=== PATIENT | male | born 1995 | race Caucasian/White ===

== ENCOUNTER 2024-02-06 20:03 | Emergency (ER) | payer OTHER ==
--- NOTE | 2024-02-06 20:33 | ER ---
Nurse's Notes 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 vc1 Coronavirus screen: Client denies travel out of the [place] in the last 14 days. At this time, the client does not indicate any symptoms associated with coronavirus-19. Ebola Screen: Patient negative for fever greater than or equal to 101.5 degrees Fahrenheit, and additional compatible Ebola Virus Disease symptoms Patient denies exposure to infectious person. Patient denies travel to an Ebola-affected area in the 21 days before illness onset. No symptoms or risks identified at this time. Initial Sepsis Screen: Does the patient meet any 2 criteria? No. Patient's initial sepsis screen is negative. Does the patient have a suspected source of infection? No. Patient's initial sepsis screen is negative. Risk Assessment: Do you want to hurt yourself or someone else? Patient reports no desire to harm self or others. Onset of symptoms was February 06, 2024. 20:20 Method Of Arrival: Ambulatory 1 20:20 Acuity: SEBASTIAN 4 vc1 Triage Assessment: 20:23 Bite description: animal information: vaccination(s) is unknown. 1 20:23 Bite description: bite sustained to left wrist by a dog, animal information: vc1 Appearance: appeared well, is from animal, vaccination(s) is current, was sustained 1-2 hours ago. Animal status: Police K9, Animal control has Police K9. General: Appears in no apparent distress. comfortable, Behavior is calm, cooperative, appropriate for age. Pain: Complains of pain in left wrist Pain does not radiate. EENT: No deficits noted. No signs and/or symptoms were reported regarding the EENT system. Neuro: Level of Consciousness is awake, alert, obeys commands, Oriented to person, place, time, situation, Appropriate for age. Cardiovascular: Capillary refill < 3 seconds Patient's skin is warm and dry. Respiratory: Airway is patent Respiratory effort is even, unlabored, Respiratory pattern is regular, symmetrical. GI: No deficits noted. No signs and/or symptoms were reported involving the gastrointestinal system. : No deficits noted. No signs and/or symptoms were reported regarding the genitourinary system. Derm: Skin is healthy with good turgor, Skin is dry, Skin is normal, Wound noted left wrist. Musculoskeletal: No deficits noted. No signs and/or symptoms reported regarding the musculoskeletal system. Injury Description: Bite sustained to left wrist caused by a dog, is from animal, was sustained 1-2 hours ago. Historical: - Allergies: 20:22 No Known Allergies; vc1 - Home Meds: 20:22 Omeprazole Oral [Active]; vc1 - PMHx: 20:22 acid reflux; vc1 - PSHx: 20:22 None; vc1 - Immunization history:: Client reports having NOT received the Covid vaccine. - Infectious Disease History:: Denies. - Social history:: Smoking status: Patient reports the use of cigarette tobacco products, denies chronic smoking, but will smoke occasionally. - Family history:: not pertinent. Screenin:23 [facility] ED Fall Risk Assessment (Adult) History of falling in the last 3 months, vc1 including since admission No falls in past 3 months (0 pts) Confusion or Disorientation No (0 pts) Intoxicated or Sedated No (0 pts) Impaired Gait No (0 pts) Mobility Assist Device Used No (0 pt) Altered Elimination No (0 pt) Score/Fall Risk Level 0 - 2 = Low Risk Oriented to surroundings, Maintained a safe environment, Educated pt \T\ family on fall prevention, incl call for assistance when getting out of bed. Abuse screen: Denies threats or abuse. Nutritional screening: No deficits noted. Tuberculosis screening: No symptoms or risk factors identified. 20:28 Exposure risk/Travel Screening: None identified. mt4 Assessment: 20:26 General: Appears in no apparent distress. comfortable, Behavior is calm, cooperative, mt4 Denies fever, chills. Pain: Complains of pain in left hand Pain currently is 1 out of 10 on a pain scale. Quality of pain is described as aching, Pain began 30 min ago. Neuro: Oriented to person, place, time, situation, Moves all extremities. Gait is steady, Speech is normal, Facial symmetry appears normal. Cardiovascular: No deficits noted. Respiratory: No deficits noted. GI: No deficits noted. : No deficits noted. Derm: Skin Dog bite to left wrist, small Skin is pink, warm \T\ dry. normal, Skin temperature is warm Wound noted left hand. Musculoskeletal: No deficits noted. Capillary refill < 3 seconds, Range of motion: intact in all extremities. Injury Description: Bite sustained to left hand caused by a dog, is full thickness. 21:26 General: Appears in no apparent distress. distressed, comfortable, Behavior is calm, mt4 cooperative. Pain: Complains of pain in right arm Pain currently is 1 out of 10 on a pain scale. Pain began s/p shot to right arm, complains of mild sorness. 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 Gait is steady, Speech is normal, Facial symmetry appears normal. Cardiovascular: Capillary refill < 3 seconds Patient's skin is warm and dry. Respiratory: Airway is patent. Injury Description: Bite Puncture sustained to left hand. Vital Signs: 20:20 BP 120 / 73; Pulse 100; Resp 18; Temp 98.9; Pulse Ox 97% ; Weight 120.2 kg; Height 6 vc1 ft. 3 in. ; 20:24 BP 108 / 76; Pulse 97; Resp 16; Temp 98.5(O); Pulse Ox 97% on R/A; Pain 1/10; mt4 21:24 BP 126 / 85; Pulse 93 LA; Resp 16; Temp 98.6; Pulse Ox 99% on R/A; Pain 1/10; mt4 20:20 Body Mass Index 33.12 (120.20 kg, 190.5 cm) vc1 20:24 Pain Scale: Adult mt4 21:24 Pain Scale: Adult mt4 Darek Coma Score: 20:28 Eye Response: spontaneous(4). Motor Response: obeys commands(6). Verbal Response: mt4 oriented(5). Total: 15. 21:26 Eye Response: spontaneous(4). Motor Response: obeys commands(6). Verbal Response: mt4 oriented(5). Total: 15. Trauma Score (Adult): 20:28 Eye Response: spontaneous(1); Verbal Response: oriented(1); Motor Response: obeys mt4 commands(2); Systolic BP: > 89 mm Hg(4); Respiratory Rate: 10 to 29 per min(4); Washington Score: 15; Trauma Score: 12 ED Course: 20:06 Patient arrived in ED. ra3 20:09 Jaime Caruso MD is Attending Physician. [facility] 20:22 Triage completed. vc1 20:22 Arm band placed on right wrist. vc1 20:23 Patient has correct armband on for positive identification. Bed in low position. Call vc1 light in reach. Pulse ox on. NIBP on. 20:24 Oskar Singh, RN is Primary Nurse. mt4 20:28 No apparent distress. Resting quietly. mt4 20:28 Fall risk band placed. Bed in low position. Side rails up X 1. Adult w/ patient. Client mt4 placed on continuous cardiac and pulse oximetry monitoring. NIBP monitoring applied. skimmer reverberatory on. Pulse ox on. Door closed. Lights dimmed. Warm blanket given. Pillow given. Verbal reassurance given. Assisted to bathroom. 20:28 Patient maintains SpO2 saturation greater than 95% on room air. mt4 21:26 Provided Education on: wound care edu. Client placed on continuous cardiac and pulse mt4 oximetry monitoring. NIBP monitoring applied. Pulse ox on. Lights dimmed. Warm blanket given. Pillow given. 21:26 No provider procedures requiring assistance completed. Patient did not have IV access mt4 during this emergency room visit. no IV was inserted. Patient maintains SpO2 saturation greater than 95% on room air. Administered Medications: 20:30 Drug: Mupirocin Topical Ointment 2 % 1 application Topical once {Note: administered by mt4 provider after laceration repair as MD stated .} Route: Topical; Site: left hand; 21:34 Follow up: Response: No adverse reaction mt4 20:45 Drug: Boostrix Tdap IM 0.5 ml IM once; as a single dose Route: IM; Site: right deltoid; mt4 21:32 Follow up: Response: No adverse reaction mt4 20:45 Drug: Amoxicillin-Clavulanate PO 875 mg PO once Route: PO; mt4 21:32 Follow up: Response: No adverse reaction mt4 20:56 Drug: Lidocaine-Epinephrine Infiltration -1%: (1:100,000) 5 ml 20 ml Infiltration once; mt4 to bedside {Note: administered by provider .} Volume: 20 ml; Route: Infiltration; Site: affected area; 21:31 Follow up: Response: No adverse reaction mt4 21:33 Follow up: Response: No adverse reaction mt4 Medication: 21:26 VIS not applicable for this client. mt4 Outcome: :33 Discharge ordered by MD. mazariegos : Admitted to mt4 21: Discharged to home ambulatory, : Condition: good : Condition: stable 21: Discharge instructions given to patient, significant other, Instructed on discharge instructions, follow up and referral plans. medication usage, wound care, Demonstrated understanding of instructions, follow-up care, medications, wound care, Prescriptions given X 2, 21:34 Patient left the ED. mt4 Signatures: Jaime Caruso MD MD cha Calcote, Vanessa, RN RN 1 Ingrid Welch 3 Oskar Singh, RN RN mt4
--- NOTE | 2024-02-06 20:33 | EDPHYS ---
Physician Documentation [facility] Name: Niko Ray Age: 28 yrs Sex: Male : 1995 Arrival Date: 02/06/2024 Time: 20:03 Bed 17 Private MD: ED Physician Jaime Caruso HPI: 02/05 20:27 This 28 yrs old Male presents to ER via Ambulatory with complaints of Dog yair Bite - work related. 20:27 The patient was bitten on the medial aspect of left wrist, by a dog, training. Onset: yair The symptoms/episode began/occurred just prior to arrival. Animal information: The animal was reported to appear healthy. Animal's vaccinations are up to date. Secondary to the bite the patient reports a laceration, that is deep. Associated signs and symptoms: The patient has no apparent associated signs or symptoms. Severity of symptoms: At their worst the symptoms were mild, in the emergency department the symptoms are unchanged. The patient has not experienced similar symptoms in the past. Historical: - Allergies: 20:22 No Known Allergies; vc1 - Home Meds: 20:22 Omeprazole Oral [Active]; vc1 - PMHx: 20:22 acid reflux; vc1 - PSHx: 20:22 None; vc1 - Immunization history:: Client reports having NOT received the Covid vaccine. - Infectious Disease History:: Denies. - Social history:: Smoking status: Patient reports the use of cigarette tobacco products, denies chronic smoking, but will smoke occasionally. - Family history:: not pertinent. ROS: 20:27 Constitutional: Negative for fever, chills, and weight loss, Eyes: Negative for injury, yair pain, redness, and discharge, ENT: Negative for injury, pain, and discharge, Neck: Negative for injury, pain, and swelling, Cardiovascular: Negative for chest pain, palpitations, and edema, Respiratory: Negative for shortness of breath, cough, wheezing, and pleuritic chest pain, Abdomen/GI: Negative for abdominal pain, nausea, vomiting, diarrhea, and constipation, Back: Negative for injury and pain, : Negative for injury, bleeding, discharge, and swelling, Skin: Negative for injury, rash, and discoloration, Neuro: Negative for headache, weakness, numbness, tingling, and seizure, Psych: Negative for depression, anxiety, suicide ideation, homicidal ideation, and hallucinations, Allergy/Immunology: Negative for hives, rash, and allergies, Endocrine: Negative for neck swelling, polydipsia, polyuria, polyphagia, and marked weight changes, Hematologic/Lymphatic: Negative for swollen nodes, abnormal bleeding, and unusual bruising, 20:27 MS/extremity: Positive for laceration, tenderness, of the medial aspect of left wrist, Exam: 20:27 Constitutional: This is a well developed, well nourished patient who is awake, alert, yair and in no acute distress. Head/Face: Normocephalic, atraumatic. Eyes: Pupils equal round and reactive to light, extra-ocular motions intact. Lids and lashes normal. Conjunctiva and sclera are non-icteric and not injected. Cornea within normal limits. Periorbital areas with no swelling, redness, or edema. ENT: Nares patent. No nasal discharge, no septal abnormalities noted. Tympanic membranes are normal and external auditory canals are clear. Oropharynx with no redness, swelling, or masses, exudates, or evidence of obstruction, uvula midline. Mucous membranes moist. Neck: Trachea midline, no thyromegaly or masses palpated, and no cervical lymphadenopathy. Supple, full range of motion without nuchal rigidity, or vertebral point tenderness. No Meningismus. Chest/axilla: Normal chest wall appearance and motion. Nontender with no deformity. No lesions are appreciated. Cardiovascular: Regular rate and rhythm with a normal S1 and S2. No gallops, murmurs, or rubs. Normal PMI, no JVD. No pulse deficits. Respiratory: Lungs have equal breath sounds bilaterally, clear to auscultation and percussion. No rales, rhonchi or wheezes noted. No increased work of breathing, no retractions or nasal flaring. Abdomen/GI: Soft, non-tender, with normal bowel sounds. No distension or tympany. No guarding or rebound. No evidence of tenderness throughout. Back: No spinal tenderness. No costovertebral tenderness. Full range of motion. Male : Normal genitalia with no discharge or lesions. Neuro: Awake and alert, GCS 15, oriented to person, place, time, and situation. Cranial nerves II-XII grossly intact. Motor strength 5/5 in all extremities. Sensory grossly intact. Cerebellar exam normal. Normal gait. Psych: Awake, alert, with orientation to person, place and time. Behavior, mood, and affect are within normal limits. 20:27 Skin: injury, laceration(s), the wound is approximately 1 cm(s), with a depth of .5 cm(s), of the medial aspect of left wrist, Vital Signs: 20:20 BP 120 / 73; Pulse 100; Resp 18; Temp 98.9; Pulse Ox 97% ; Weight 120.2 kg; Height 6 vc1 ft. 3 in. ; 20:24 BP 108 / 76; Pulse 97; Resp 16; Temp 98.5(O); Pulse Ox 97% on R/A; Pain 1/10; mt4 21:24 BP 126 / 85; Pulse 93 LA; Resp 16; Temp 98.6; Pulse Ox 99% on R/A; Pain 1/10; mt4 20:20 Body Mass Index 33.12 (120.20 kg, 190.5 cm) vc1 20:24 Pain Scale: Adult mt4 21:24 Pain Scale: Adult mt4 Isabella Coma Score: 20:28 Eye Response: spontaneous(4). Motor Response: obeys commands(6). Verbal Response: mt4 oriented(5). Total: 15. 21:26 Eye Response: spontaneous(4). Motor Response: obeys commands(6). Verbal Response: mt4 oriented(5). Total: 15. Trauma Score (Adult): 20:28 Eye Response: spontaneous(1); Verbal Response: oriented(1); Motor Response: obeys mt4 commands(2); Systolic BP: > 89 mm Hg(4); Respiratory Rate: 10 to 29 per min(4); Isabella Score: 15; Trauma Score: 12 Laceration: 20:27 Wound Repair of .5cm ( 0.2in ) subcutaneous laceration to medial aspect of left wrist. yair Linear shaped.. Distal neuro/vascular/tendon intact. Anesthesia: Local anesthetic administered with 5 mls of 1% lidocaine w/ Epi. Wound prep: Moderate cleansing with betadine by wv. Skin closed with 1 5-0 Prolene using interrupted sutures and sterile technique. Dressed with Neosporin. Patient tolerated well. MDM: 20:09 Patient medically screened. [facility] 02/06 01:45 Differential diagnosis: superficial laceration, tendon injury, vascular injury, yair cellulitis. Data reviewed: vital signs, nurses notes. I considered the following discharge prescriptions or medication management in the emergency department Medications were administered in the Emergency Department. See MAR. Test considered but Not performed: Labs: NO LABS. 02/05 20:27 Order name: Dressing - Wound; Complete Time: 20:57 yair 02/05 20:27 Order name: Gloves, Sterile; Complete Time: 20:57 yair 02/05 20:27 Order name: Prolene, Sutures; Complete Time: 20:57 yair 02/05 20:27 Order name: Setup Suture Tray; Complete Time: 20:57 yair Administered Medications: 02/05 20:30 Drug: Mupirocin Topical Ointment 2 % 1 application Topical once {Note: administered by mt4 provider after laceration repair as MD stated .} Route: Topical; Site: left hand; 21:34 Follow up: Response: No adverse reaction mt4 20:45 Drug: Boostrix Tdap IM 0.5 ml IM once; as a single dose Route: IM; Site: right deltoid; mt4 21:32 Follow up: Response: No adverse reaction mt4 20:45 Drug: Amoxicillin-Clavulanate PO 875 mg PO once Route: PO; mt4 21:32 Follow up: Response: No adverse reaction mo4 20:56 Drug: Lidocaine-Epinephrine Infiltration -1%: (1:100,000) 5 ml 20 ml Infiltration once; mt4 to bedside {Note: administered by provider .} Volume: 20 ml; Route: Infiltration; Site: affected area; 21:31 Follow up: Response: No adverse reaction mt4 21:33 Follow up: Response: No adverse reaction mt4 Disposition Summary: 02/06/24 20:33 Discharge Ordered Notes: Location: Home yair Problem: new yair Symptoms: have improved yair Condition: Stable yair Diagnosis - Bitten by dog yair - Laceration without foreign body of left wrist yair Followup: yair - With: Private Physician - When: 2 - 3 days - Reason: Recheck today's complaints, Continuance of care, Re-evaluation by your physician Discharge Instructions: - Discharge Summary Sheet yair - Animal Bite, Adult, [id number] yair - Laceration Care, Adult yair - Laceration Care, Adult, [id number] yair - Animal Bite, Adult yair Forms: - Medication Reconciliation Form yair - Antibiotic Education yair - Prescription Opioid Use yair - Patient Portal Instructions yair - Leadership Thank You Letter yair - Work release form rv1 Prescriptions: - Centany 2 % Topical ointment - apply 1 application TOPICAL route 3 times per day; 15 gram tube; Refills: 0, yair Product Selection Permitted - Augmentin 875-125 mg Oral tablet - take 1 tablet ORAL route every 12 hours for 7 days; 14 tablet; Refills: 0, yair Product Selection Permitted Signatures: Jaime Caruso MD MD cha Calcote, Vanessa RN RN vc1 Oskar Singh RN RN mt4
[2024-02-06] MEDS ORDERED: LIDOCAINE 2% W/EPI 1:200,000 MPF 20 ML VIAL IM ONE (20:36)
[2024-02-06] MEDS ORDERED: MUPIROCIN 2% OINT 22GM TUBE TOP ONE (20:36)
[2024-02-06] MEDS ORDERED: AMOX/K CLAV 875 MG TAB ONE (20:36)
[2024-02-06] MEDS ORDERED: TDAP (DIPHTH,PERTUSS(ACELL),TET VAC) 0.5 ML VIAL IMVAC ONE (20:55)
[2024-02-06 22:08] VITALS: BP 126/85; TEMP 98.6; O2SAT 99
== END 2024-02-06 21:34 | disposition home or self-care (01) ==
LOC: ER 20:03
PROC: 0HQEXZZ Repair Left Lower Arm Skin, External Approach (ICD-10-PCS; principal; 2024-02-06)
DX: S61.512A Laceration without foreign body of left wrist, initial encounter (principal); W54.0XXA Bitten by dog, initial encounter; F17.210 Nicotine dependence, cigarettes, uncomplicated

== ENCOUNTER 2024-02-17 16:16 | Emergency (ER) | payer OTHER, SELFPAY ==
[2024-02-17 18:13] LABS: Absolute Basophils 0.1 K/uL (0-0.5); Absolute Eosinophils 0.1 K/uL (0-0.5); Absolute Lymphocytes (CBC) 2.7 K/uL (0.7-4.9); Absolute Monocytes 1.2 K/uL (0.1-1.3); Absolute Neutrophil 9.9 K/uL (1.8-8.0); Basophils % 0.7 % (0-1.3); Eosinophils % 0.9 % (0-4.4); Hematocrit 43.6 % (39.6-49.0); Hemoglobin 14.9 g/dL (13.6-17.9); Lymphocytes % 19.1 % (15.3-44.8); MCH 30.1 pg (27.0-35.0); MCHC 34.2 g/dL (32.0-36.0); MCV 88.2 fL (80-100); MPV 6.5 fL (7.6-11.3); Monocytes % 8.9 % (3.3-12.3); Neutrophils % 70.4 % (41.7-73.7); Platelets 244 thou/uL (152-406); RBC Red Blood Cell Count 4.94 M/uL (4.33-5.43); Red Cell Distribution Width 13.1 % (12.1-15.2)
[2024-02-17 18:32] LABS: Specific Gravity 1.027 (1.005-1.030); Sqamous Epithelial None Seen /HPF (None Seen); Urine Bacteria None Seen /HPF (<20); Urine Bilirubin NEGATIVE (Negative); Urine Blood 1+ (Negative); Urine Clarity Clear (Clear); Urine Color Yellow (Yellow); Urine Culture Reflex Order NOT NEEDED; Urine Glucose NEGATIVE (Negative); Urine Ketones NEGATIVE (Negative); Urine Microscopic Reflex YN ORDER UMIC; Urine Mucus Slight /HPF (None Seen); Urine Nitrite NEGATIVE (Negative); Urine Protein TRACE (Negative); Urine Urobilinogen 1+ (Normal); Urine WBC <5 /HPF (<5); Urine pH 6.5 (5.0-7.0)
[2024-02-17 18:33] LABS: Albumin 3.6 g/dL (3.4-5.0); Anion Gap 6.7 mEq/L (5.0-15.0); Bilirubin Total 1.1 mg/dL (0.2-1.0); Globulin 3.7 g/dL (2.3-3.5); Potassium 3.7 mEq/L (3.5-5.1); Protein, Total 7.3 g/dL (6.4-8.2)
--- NOTE | 2024-02-17 19:11 | RAD REPORT ---
EXAM DESCRIPTION: CTAbdomen Pelvis W Contrast - 02/17/2024 7:03 pm CLINICAL HISTORY: Abdominal pain. ABD PAIN COMPARISON: <Comparisons> TECHNIQUE: Biphasic CT imaging of the abdomen and pelvis was performed with 100 ml non-ionic IV cont rast. All CT scans are performed using dose optimization technique as appropriate and may include automated exposure control or mA/KV adjustment according to patient size. FINDINGS: The lung bases are clear. The liver, spleen, pancreas, adrenal glands and kidneys are within normal limits. No bowel obstruction, free air, free fluid or abscess. There is a 5 cm area of sigmoid colon in the l ower quadrant which is moderately inflamed. The appendix is normal. No evidence of significant lymph adenopathy. No suspicious bony findings. IMPRESSION: Inflamed sigmoid colon in the left lower quadrant 5 cm likely acute diverticulitis after appropriate therapy, recommend colonoscopy for direct visualization of this region.
--- NOTE | 2024-02-17 19:32 | RAD REPORT ---
EXAM DESCRIPTION: US - Scrotum Testicles - 02/17/2024 7:14 pm CLINICAL HISTORY: PAIN COMPARISON: <Comparisons> FINDINGS: The right testicle 5.4 x 3.7 x 2.6 cm. No intratesticular masses or evidence of testicular torsion. The left testicle 5.0 x 3.5 x 2.6 cm. No intratesticular masses or evidence of testicular torsion. Both epididymides are normal in size and appearance. No pathologic fluid collections. IMPRESSION: Unremarkable study.
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
--- NOTE | 2024-02-17 19:54 | ER ---
Nurse's Notes [facility] Name: Niko Ray Age: 28 yrs Sex: Male : 1995 Arrival Date: 02/17/2024 Time: 16:16 Bed 6 Private MD: Diagnosis: Diverticulitis of large intestine without perforation or abscess without bleeding Presentation: 02/16 16:48 Chief complaint: Patient states: he has been having lower abdominal cramping that is ap3 intermittent since yesterday afternoon. patient reports his last bowel movement to be yesterday morning. patient reports his pain to be a 7/10 on the pain scale. patient denies any nausea or vomiting. Coronavirus screen: At this time, the client does not indicate any symptoms associated with coronavirus-19. Ebola Screen: No symptoms or risks identified at this time. Initial Sepsis Screen: Does the patient meet any 2 criteria? No. Patient's initial sepsis screen is negative. Does the patient have a suspected source of infection? No. Patient's initial sepsis screen is negative. Risk Assessment: Do you want to hurt yourself or someone else? Patient reports no desire to harm self or others. Onset of symptoms was February 16, 2024. 16:48 Method Of Arrival: Ambulatory ap3 16:48 Acuity: SEBASTIAN 3 ap3 Triage Assessment: 16:51 General: Appears in no apparent distress. Behavior is calm, cooperative, appropriate ap3 for age. Pain: Complains of pain in suprapubic area, right lower quadrant and left lower quadrant Pain currently is 7 out of 10 on a pain scale. Pain began 1 day ago. Is intermittent. Neuro: Level of Consciousness is awake, alert, obeys commands, Oriented to person, place, time, situation, Appropriate for age. Cardiovascular: Patient's skin is warm and dry. Respiratory: Airway is patent Respiratory effort is even, unlabored, Respiratory pattern is regular, symmetrical. GI: Reports lower abdominal pain, constipation, cramping. Historical: - Allergies: 16:50 No Known Allergies; ap3 - PMHx: 16:50 acid reflux; ap3 - Immunization history:: Client reports having NOT received the Covid vaccine. Last tetanus immunization: up to date Flu vaccine is not up to date. - Infectious Disease History:: Denies. - Social history:: Smoking status: Patient reports the use of cigarette tobacco products, smokes one pack cigarettes per day. Patient uses alcohol, occasionally. Screenin:[facility] ED Fall Risk Assessment (Adult) History of falling in the last 3 months, ap3 including since admission No falls in past 3 months (0 pts) Confusion or Disorientation No (0 pts) Intoxicated or Sedated No (0 pts) Impaired Gait No (0 pts) Mobility Assist Device Used No (0 pt) Altered Elimination No (0 pt) Score/Fall Risk Level 0 - 2 = Low Risk Oriented to surroundings, Maintained a safe environment, Educated pt \T\ family on fall prevention, incl call for assistance when getting out of bed, Assessed \T\ reinforced patient's understanding of fall precautions, Hourly rounding (assess needs \T\ fall precautionary measures) done, Used ambulatory aids as needed (educated on \T\ assisted with), Used gait belt as appropriate. Abuse screen: Denies threats or abuse. Nutritional screening: No deficits noted. Tuberculosis screening: No symptoms or risk factors identified. Assessment: 18:08 General: Appears in no apparent distress. Behavior is calm, cooperative. Pain: mb9 Complains of pain in abdomen Pain radiates to pelvis Pain currently is 7 out of 10 on a pain scale. Pain began suddenly, Is intermittent. Neuro: [place] Agitation-Sedation Scale (RASS): 0 - Alert and Calm Level of Consciousness is awake, alert, obeys commands, Oriented to person, place, time, situation, Appropriate for age. Cardiovascular: Patient's skin is warm and dry. Respiratory: Airway is patent Respiratory effort is even, unlabored, Respiratory pattern is regular, symmetrical. GI: Abdomen is round non-distended, Bowel sounds present X 4 quads. Abd is soft Abdomen is tender to palpation in suprapubic area and right lower quadrant. GI: Reports constipation. : No signs and/or symptoms were reported regarding the genitourinary system. EENT: No signs and/or symptoms were reported regarding the EENT system. Derm: Skin is pink, warm \T\ dry. Musculoskeletal: Range of motion: intact in all extremities. 19:46 Reassessment: Patient appears in no apparent distress at this time. Patient and/or bm8 family updated on plan of care and expected duration. Pain level reassessed. Patient is alert, oriented x 3, equal unlabored respirations, skin warm/dry/pink. GI: Abdomen is round non-distended, Bowel sounds present X 4 quads. Abd is soft Abdomen is tender to palpation in right lower quadrant and left lower quadrant Reports upper abdominal pain, constipation, Pain is 6 out of 10 on a pain scale. : No signs and/or symptoms were reported regarding the genitourinary system. Parent/caregiver report the patient having pain in groin. EENT: No signs and/or symptoms were reported regarding the EENT system. Derm: No signs and/or symptoms reported regarding the dermatologic system. Musculoskeletal: No signs and/or symptoms reported regarding the musculoskeletal system. 20:00 Reassessment: delay discharge due to medication order. bm8 Vital Signs: 16:48 BP 122 / 71; Pulse 89; Resp 17; Temp 97.1; Pulse Ox 100% ; Weight 120.2 kg; Height 6 ap3 ft. 2 in. ; Pain 7/10; 18:42 BP 115 / 95; Pulse 84; Resp 18; Pulse Ox 100% ; mb9 19:46 BP 107 / 68; Pulse 98; Resp 18; Temp 97.1; Pulse Ox 98% ; Pain 6/10; bm8 20:46 BP 110 / 73; Pulse 91; Resp 17; Temp 97.1; Pulse Ox 100% ; Pain 5/10; bm8 16:48 Body Mass Index 34.02 (120.20 kg, 187.96 cm) ap3 16:48 Pain Scale: Adult ap3 19:46 Pain Scale: Adult bm8 20:46 Pain Scale: Adult bm8 [place] Coma Score: 19:46 Eye Response: spontaneous(4). Motor Response: obeys commands(6). Verbal Response: bm8 oriented(5). Total: 15. 20:46 Eye Response: spontaneous(4). Motor Response: obeys commands(6). Verbal Response: bm8 oriented(5). Total: 15. ED Course: 16:18 Patient arrived in ED. im 16:38 Dayan Hyde MD is Attending Physician. sp3 16:50 Triage completed. ap3 16:52 Arm band placed on left wrist. ap3 17:51 Magnolia Melara RN is Primary Nurse. mb9 17:56 Placed in gown. Bed in low position. Call light in reach. Side rails up X 1. Provided mb9 Education on: press call light if needing anything . Client placed on continuous cardiac and pulse oximetry monitoring. NIBP monitoring applied. Door closed. Noise minimized. Warm blanket given. Pillow given. 18:09 Initial lab(s) drawn, by me, sent to lab. Inserted saline lock: 20 gauge in right mb9 antecubital area, using aseptic technique. Blood collected. Flushed with 10 mL NS. 18:09 No provider procedures requiring assistance completed. mb9 18:09 CBC with Diff Sent. mb9 18:09 CMP Sent. mb9 18:09 Lipase Sent. mb9 18:38 GC (Caleb/Chl) Probe URINE Sent. mb9 19:00 Report given to Anais. mb9 19:05 CT Abd/Pelvis - IV Contrast Only In Process Unspecified. EDMS 19:07 Attending Physician role handed off by Dayan Hyde MD ec2 19:07 Danny Morris MD is Attending Physician. ec2 19:15 US Scrotum Testicles In Process Unspecified. EDMS 20:46 IV discontinued, intact, bleeding controlled, No redness/swelling at site. Pressure bm8 dressing applied. Administered Medications: 20:46 Drug: Ciprofloxacin PO 500 mg PO once Route: PO; bm8 20:46 Follow up: Response: No adverse reaction; Medication Administered at Departure bm8 20:46 Drug: metroNIDAZOLE PO 500 mg PO once Route: PO; bm8 20:46 Follow up: Response: No adverse reaction; Medication Administered at Departure bm8 20:46 Drug: Ketorolac IVP 15 mg IVP once Route: IVP; Site: right antecubital; bm8 20:46 Follow up: Response: No adverse reaction; Medication Administered at Departure bm8 Medication: 17:56 VIS not applicable for this client. mb9 Outcome: 19:53 Discharge ordered by . ec2 20:46 Discharged to home ambulatory, bm8 20:46 Condition: stable 20:46 Discharge instructions given to patient, family, Instructed on discharge instructions, follow up and referral plans. no drinking with medication, no driving heavy equipment, medication usage, safety practices, Demonstrated understanding of instructions, follow-up care, medications, Prescriptions given X 3, 20:48 Patient left the ED. bm8 Signatures: Dispatcher [employer] Sue Freire, CAMILLA RN ap3 Dayan Hyde MD MD sp3 Magnolia Melara RN RN mb9 Jolene Harris Edwin, MD MD ec2 Billy Zaidi RN RN bm8 Corrections: (The following items were deleted from the chart) 20:46 20:45 Reassessment: delay discharge due to medication order bm8 bm8
[2024-02-17] MEDS ORDERED: KETOROLAC 30 MG/ML INJ ONE (20:40)
[2024-02-17] MEDS ORDERED: CIPROFLOXACIN HCL 500 MG TAB ONE (20:40)
[2024-02-17] MEDS ORDERED: metroNIDAZOLE 500 MG TABLET ONE (20:40)
[2024-02-17 20:52] VITALS: TEMP 97.1
[2024-02-17 20:57] VITALS: BP 110/73; O2SAT 100
[2024-02-20 12:18] LABS: C.trachomatis RNA,TMA Not Detected (Not Detected); N.gonorrhoeae RNA,TMA Not Detected (Not Detected)
== END 2024-02-17 20:48 | disposition home or self-care (01) ==
LOC: ER 16:16
DX: K57.32 Diverticulitis of large intestine without perforation or abscess without bleeding (principal); R30.0 Dysuria; F17.210 Nicotine dependence, cigarettes, uncomplicated
CPT/HCPCS: 85025; 81001; 36415; 83690; 80053; 87590; 87490; 74177; 76870; 96374; 99284; Q9967

== ENCOUNTER 2024-10-17 16:46 | Emergency (ER) | payer BC, OTHER ==
--- OUTSIDE RECORDS SUMMARY | 2024-10-17 16:49 | XMS REPORT | Continuity of Care Document ---
Author Name Unknown Address [address] [facility] [address] [place] [address] Organization [facility] Address [address] [facility] [address] [place] [address] Care Team Providers Care Panelboard Operator Name Role Phone Ros Roque Primary Care Physician + [phone] NEREYDA GUTIERREZ Attending Clinician Unavailable Deann Olivera Attending Clinician [phone] ZAHIRA KIRK Attending Clinician Unavailable Zahira Powell Attending Clinician [phone] DEANN WALKER Attending Clinician Unavailable Ros Roque Attending Clinician [phone] Doctor Unassigned, [place] Attending Clinician U ROS Santoyo Attending Clinician Unavailable Suly Villalpando RN Attending Clinician Unavailabl e Ros Roque Attending Clinician [phone] ISELA VIZCARRA Attending Clinician Unavailable Isela Martinez Attending Clinician [phone] Unknown, Attending Attending Clinician Unavailab le Doctor Unassigned, [place] Attending Clinician U Oleksandr Savage MD Attending Clinician Payers Payer Name Policy Type Policy Number Effective Date Expirati on Date Source Problems Condition Name Condition Details Condition Category Status Onset Date Resolution Date Last Treatment Date Treating Clinician Comments Source Allergic rhinitis Allergic rhinitis Disease Active 2014-06 00:00: 00 [facility] Upper respirator y infection Upper respirator y infection Disease Active 2014-06 00:00: 00 [facility] Allergies, Adverse Reactions, Alerts Allergy Name Allergy Type Status Severity Reaction(s) Onset Date Inactive Date Treating Clinician Comments Source BUPROPIO N DRUG INGREDI Active Hives 07-24 00:00: 00 [facility] Bupropio n Propensi ty to adverse reaction s Active Hives 07-24 00:00: 00 [facility] Bee Sting / Venom Propensi ty to adverse reaction s Active Swelling 2014-06 00:00: 00 Oral swelling [facility] BEE STING / VENOM DRUG INGREDI Active Swelling 2014-06 00:00: 00 [facility] Social History Social Habit Start Date Stop Date Quantity Comments Source History SDOH Alcohol Frequency [facility] History SDOH Alcohol Std Drinks [facility] History SDOH Alcohol Binge [facility] History of tobacco use Chews Tobacco [facility] Alcoholic beverage intake 2024-09-30 00:00:00 2024-09-30 00:00:00 Current drinker of alcohol (finding) [facility] Tobacco use and exposure 2024-07-11 00:00:00 2024-07-11 00:00:00 User of smokeless tobacco [facility] Cigarettes smoked current (pack per day) - Reported 2024-07-11 00:00:00 2024-07-11 00:00:00 [facility] Cigarette pack-years 2024-07-11 00:00:00 2024-07-11 00:00:00 [facility] History of Social function 2024-07-11 00:00:00 2024-07-11 00:00:00 [facility] Exposure to SARS-CoV-2 (event) 2022-07-25 00:00:00 2022-08-04 11:29:00 Not sure [facility] Alcohol intake 2022-08-04 00:00:00 2022-08-04 00:00:00 Current drinker of alcohol (finding) [facility] Alcohol Comment 2018-01-23 00:00:00 2018-01-23 00:00:00 every other weekend- about 3-4 each time [facility] Sex assigned at 1995 00:00:00 1995 00:00:00 [facility] Smoking Status Start Date Stop Date Source Smokes tobacco daily 2024-07-11 00:00:00 [facility] Medications Ordered Medication Name Filled Medication Name Start Date Stop Date Current Medication? Ordering Clinician Indication Dosage Frequency Signature (SIG) Comments Components Source Nitrofurant oin&Nit. Macrocryst (MACROBID) 100 mg capsule 10-03 00:00: 00 10-09 04:59 :00 Yes [id number] 100mg Take 1 capsule by mouth in the morning and 1 capsule in the evening. Do all this for 5 days. [facility] phenazopyri dine (PYRIDIUM) 200 mg tablet 09-30 00:00: 00 Yes [id number] 200mg Take 1 tablet by mouth in the morning and 1 tablet at noon and 1 tablet in the evening. Take after meals. [facility] varenicline tartrate (CHANTIX STARTING MONTH BOX) 0.5 mg (11)- 1 mg (42) tablet 08-06 00:00: 00 Yes [id number] Take one 0.5mg tab by mouth once daily for 3 days, then one 0.5mg tab twice daily for 4 days, then one 1mg tab twice daily. [facility] varenicline 1 mg tablet 07-25 00:00: 00 Yes [id number] 1mg Take 1 tablet by mouth in the morning and 1 tablet in the evening. Begin after starting pack. [facility] varenicline (CHANTIX STARTING MONTH BOX) 0.5 mg (11)- 1 mg (42) tablet 2-07 00:00: 00 08-06 00:00 :00 No [id number] Take one 0.5mg tab by mouth once daily for 3 days, then one 0.5mg tab twice daily for 4 days, then one 1mg tab twice daily. [facility] busPIRone 5 mg tablet 07-24 00:00: 00 Yes [id number] 5mg Take 1 tablet by mouth 2 (two) times daily as needed (anxiety/i nsomnia). [facility] busPIRone 5 mg tablet 24 00:00: 00 07-24 00:00 :00 No [id number] 5mg Take 1 tablet by mouth 2 (two) times daily as needed (anxiety/i nsomnia). [facility] buPROPion SR (WELLBUTRIN SR) 150 mg SR tablet 07-11 00:00: 00 07-24 00:00 :00 No [id number] Take 150 mg once daily for 3 days, then increase to 150 mg twice daily [facility] amoxicillin 500 mg tablet 08-04 00:00: 00 08-15 05:59 :00 No [id number] 1000mg Take 2 tablets by mouth in the morning for 10 days. [facility] penicillin v potassium 500 mg tablet 11-04 15:42: 16 11-04 00:00 :00 No 500mg Take 500 mg by mouth 4 (four) times daily. [facility] bromphenira mine-pseudo ephedrine-D M (BROMFED DM) 2-30-10 mg/5 mL syrup 11-04 00:00: 00 Yes [id number] 5mL Take 5 mL by mouth 4 (four) times daily as needed for Cold symptoms. [facility] mupirocin 2 % ointment 01-23 00:00: 00 11-04 00:00 :00 No [id number] Apply to area(s) 3 (three) times daily. [facility] chlorhexidi ne 4 % external liquid 2018-0 8-08 00:00: 00 11-04 00:00 :00 No [id number] Rinse skin with water, apply topical, wash, and rinse off product once weekly. [facility] Vital Signs Vital Name Observation Time Observation Value Comments Anika dinh Systolic blood pressure 2024-09-30 15:11:00 109 mm[Hg] [facility] Diastolic blood pressure 2024-09-30 15:11:00 74 mm[Hg] [facility] Heart rate 2024-09-30 15:11:00 94 /min [facility] Body temperature 2024-09-30 15:11:00 37 Isabel [facility] Body height 2024-09-30 15:11:00 190.5 cm [facility] Body weight 2024-09-30 15:11:00 117.436 kg [facility] BMI 2024-09-30 15:11:00 32.36 kg/m2 [facility] Oxygen saturation in Arterial blood by Pulse oximetry 2024-09-30 15:11:00 96 /min [facility] Systolic blood pressure 2024-07-24 17:08:00 127 mm[Hg] [facility] Diastolic blood pressure 2024-07-24 17:08:00 71 mm[Hg] [facility] Heart rate 2024-07-24 17:08:00 95 /min [facility] Body temperature 2024-07-24 17:08:00 37.06 Isabel [facility] Body height 2024-07-24 17:08:00 190.5 cm [facility] Body weight 2024-07-24 17:08:00 114.76 kg [facility] BMI 2024-07-24 17:08:00 31.62 kg/m2 [facility] Oxygen saturation in Arterial blood by Pulse oximetry 2024-07-24 17:08:00 97 /min [facility] Systolic blood pressure 2024-07-11 21:56:00 122 mm[Hg] [facility] Diastolic blood pressure 2024-07-11 21:56:00 67 mm[Hg] [facility] Heart rate 2024-07-11 21:56:00 97 /min [facility] Body temperature 2024-07-11 21:56:00 36.72 Isabel [facility] Body height 2024-07-11 21:56:00 190.5 cm [facility] Body weight 2024-07-11 21:56:00 117.935 kg [facility] BMI 2024-07-11 21:56:00 32.50 kg/m2 [facility] Oxygen saturation in Arterial blood by Pulse oximetry 2024-07-11 21:56:00 98 /min [facility] Systolic blood pressure 2022-08-04 17:31:00 119 mm[Hg] [facility] Diastolic blood pressure 2022-08-04 17:31:00 78 mm[Hg] [facility] Heart rate 2022-08-04 17:31:00 94 /min [facility] Body temperature 2022-08-04 17:31:00 36.94 Isabel [facility] Respiratory rate 2022-08-04 17:31:00 16 /min [facility] Body height 2022-08-04 17:31:00 190.5 cm [facility] Body weight 2022-08-04 17:31:00 115.667 kg [facility] BMI 2022-08-04 17:31:00 31.87 kg/m2 [facility] Oxygen saturation in Arterial blood by Pulse oximetry 2022-08-04 17:31:00 96 /min [facility] Systolic blood pressure 2021-11-04 20:16:00 110 mm[Hg] [facility] Diastolic blood pressure 2021-11-04 20:16:00 67 mm[Hg] [facility] Heart rate 2021-11-04 20:16:00 99 /min [facility] Body temperature 2021-11-04 20:16:00 36.89 Isabel [facility] Body height 2021-11-04 20:16:00 190.5 cm [facility] Body weight 2021-11-04 20:16:00 116.121 kg [facility] BMI 2021-11-04 20:16:00 32.00 kg/m2 [facility] Oxygen saturation in Arterial blood by Pulse oximetry 2021-11-04 20:16:00 96 /min [facility] Procedures Procedure Date / Time Performed Performing Clinicia n Source POCT URINALYSIS 2024-09-30 15:20:00 Zahira Kirk [facility] HB ECG ROUTINE & RHYTHM STRIP 2024-07-24 17:41:04 Ros Daugherty [facility] HEMOGLOBIN A1C WITH EAG-Q 2024-07-24 16:12:00 Ros Daugherty [facility] REFERRAL- REQUEST/RESPONSE 2023-12-13 20:52:51 Doctor Unassigned, [place] [facility] POCT MOLECULAR STREP 2022-08-04 17:37:00 Unknown, Atte nding [facility] POCT MOLECULAR FLU 2021-11-04 20:28:00 Ros Daguherty [facility] Encounters Start Date/Time End Date/Time Encounter Type Admission Type Attending Clinicians Care Facility Care Department Encounter ID Source 2024-10-03 00:00:00 2024-10-03 13:08:22 Patient Secure Deann C[facility] 1.2.840.114 350.1.13.10 4.2.7.2.686 [id number] [facility] 2024-09-30 10:00:00 2024-09-30 10:42:52 Outpatient R ZAHIRA KIRK [facility] [id number] [facility] 2024-09-30 10:00:00 2024-09-30 10:42:52 [facility] 1.2.840.114 350.1.13.10 4.2.7.2.686 [id number] [facility] 2024-08-05 00:00:00 2024-08-06 11:42:47 Telephone Ros Daugherty [facility] 1.2.840.114 350.1.13.10 4.2.7.2.686 [id number] [facility] 2023-12-13 00:00:00 2024-08-02 07:25:57 Orders Only Doctor Unassigned, [place] Doctor Unassigned, [place] [facility] 1.2.840.114 350.1.13.10 4.2.7.2.686 [id number] [facility] 2024-07-30 00:00:00 2024-07-31 09:36:44 Telephone Ros Daugherty [facility] 1.2.840.114 350.1.13.10 4.2.7.2.686 [id number] [facility] 2024-07-25 00:00:00 2024-07-25 11:39:59 Telephone Ros Daugherty [facility] 1.2.840.114 350.1.13.10 4.2.7.2.686 [id number] [facility] 2024-07-24 00:00:00 2024-07-25 00:13:14 Orders Only Kaylie Ros [facility] 1.2.840.114 350.1.13.10 4.2.7.2.686 [id number] [facility] 2024-07-24 11:00:00 2024-07-24 11:47:27 Outpatient R ROS DAUGHERTY [facility] [id number] [facility] 2024-07-24 11:00:00 2024-07-24 11:47:27 Office Visit Kaylie Ros Janet [facility] 1.2.840.114 350.1.13.10 4.2.7.2.686 [id number] [facility] 2024-07-18 00:00:00 2024-07-18 11:51:12 Nurse Triage Suly Villalpando Angelina [facility] 1.2.840.114 350.1.13.10 4.2.7.2.686 [id number] [facility] 2024-07-11 00:00:00 2024-07-11 16:18:40 Telephone Ros Daugherty Janet [facility] 1.2.840.114 350.1.13.10 4.2.7.2.686 [id number] [facility] 2024-07-11 16:00:00 2024-07-11 16:17:05 Outpatient R ROS DAUGHERTY [facility] [id number] [facility] 2024-07-11 16:00:00 2024-07-11 16:17:05 Office Visit Gayathri Daughertye [facility] 1.2.840.114 350.1.13.10 4.2.7.2.686 [id number] [facility] 2023-09-19 00:00:00 2023-09-19 00:00:00 Telephone Ros Daugherty Janet [facility] 1.2840.114 350.1.13.10 4.2.7.2.686 [id number] [facility] 2022-08-04 11:40:00 2022-08-04 12:24:33 Outpatient R ISELA VIZCARRA [facility] [id number] [facility] 2022-08-04 11:40:00 2022-08-04 12:24:33 Urgent Care Isela Vizcarra Unknown, Attending [facility] 1.2.840.114 350.1.13.10 4.2.7.2.686 [id number] [facility] 2022-08-04 00:00:00 2022-08-04 00:00:00 Letter (Out) Isela Vizcarra [facility] 1.2840.114 350.1.13.10 4.2.7.2.686 [id number] [facility] 2021-11-04 15:00:00 2021-11-04 15:53:18 Outpatient R ROS DAUGHERTY [facility] [id number] [facility] 2021-11-04 15:00:00 2021-11-04 15:53:18 Office Visit Ros Daugherty [facility] 1.2.840.114 350.1.13.10 4.2.7.2.686 [id number] [facility] 2021-11-04 15:00:00 2021-11-04 15:53:18 Outpatient R ROS DAUGHERTY [facility] [id number] [facility] 2021-11-04 00:00:00 2021-11-04 00:00:00 Orders Only Doctor Unassigned, [place] [facility] 1.2840.114 350.1.13.10 4.2.7.2.686 [id number] [facility] 2019-12-09 00:00:00 2019-12-09 00:00:00 Orders Only Doctor Unassigned, [place] [facility] 1.2840.114 350.1.13.10 4.2.7.2.686 [id number] [facility] 2019-11-21 00:00:00 2019-11-21 00:00:00 Telephone Oleksandr Cason [facility] 1.2.840.114 350.1.13.10 4.2.7.2.686 [id number] [facility] Results Test Description Test Time Test Comments Results Result Co mments Source [facility] [id number] 06:00:00* Test Item Value Reference Range Interpretation Comme nts HEMOGLOBIN A1c-Q (test code = 4548-4) 5.5 See_Comment For the purpose of screening for the presence ofdiabetes: <5.7% ? ? ? Consistent with the absence of diabetes5.7-6.4% ? ?Consistent with increased risk for diabetes ?(prediabetes)> or =6.5% ?Consistent with diabetes This assay result is consistent with a decreased riskof diabetes. Currently, no consensus exists regarding use ofhemoglobin A1c for diagnosis of diabetes in children. According to [place] Diabetes Association (ADA)guidelines, hemoglobin A1c <7.0% represents optimalcontrol in non- diabetic patients. Differentmetrics may apply to specific patient populations. Standards of Medical Care in Diabetes(ADA). ? [Automated message] The system which generated this result transmitted reference range: <5.7 % of total Hgb. The reference range was not used to interpret this result as normal/abnormal. EAG (MG/DL)-Q (test code = 17514-9) 111 mg/dL EAG (MMOL/L)-Q (test code = 06015-9) 6.2 mmol/L PEREZ (test code = PEREZ) PERFORMED BY [email or web address]; [address] [place] [id number]; RENATA SHAH, PHD., F-ABFT [facility]/[id number] 20:52:51 Ordered by an unspecified provider.[facility] [id number] 17:41:29* Test Item Value Reference Range Interpretation Comme nts POCT Molecular Strep (test c ode = 66262-5) Positive Negative A Lab Interpretation (test cod e = 62465-7) Abnormal [facility] MOLECULAR [id number] 20:39:50* Test Item Value Reference Range Interpretation Comme nts POCT Molecular FluA (test co de = 29685-1) Negative Negative POCT Molecular FluB (test co de = 83133-5) Negative Negative Lab Interpretation (test cod e = 79582-0) Normal [facility] Notes Date/Time Note Provider Source 2024-10-03 13:07:36 Tx sent for UTI T [facility] 2024-08-06 11:41:23 RX filled on 07/25/24 by Provider and resent to requested pharmacy per patient request. [facility] 2024-08-05 15:00:30 Jose Martin Orozco is a 28 year old male is requesting varenicline 0.5 mg (11)-1 mg (42) tablets in a dose pack (Chantix Starting Month Box) be sent to [facility] [id number] [place] [address] [facility] Danielle Dyer [facility] 2024-07-31 09:36:25 Notified patient of test results/recommendations per MASHA Bailey and gave verbal understanding. [facility] 2024-07-30 13:24:07 Jose Martin Orozco is a 28 year old male patient returning missed call regarding his results. Would like a call back to go over them. Please advise. ING SUPERVISOR Kd Avalosedondo [facility] 2024-07-18 11:25:00 Recommend stopping the wellbutrin. ER for any oropharyngeal swelling or difficulty breathing. ING SUPERVISOR [facility] 2024-07-18 11:25:00 Called Patient, No answer, Left detailed message on personal voice mail and advised to call back for further questions or concerns. ING SUPERVISOR Yokasta Leos RN [facility] 2024-07-18 11:25:00 Regarding: Rash on hands with swelling-Speak with nurse ----- Message from Patient Net C Developer sent at 07/18/2024 11:23 AM YARDING SUPERVISOR ----- Allergic reaction to Chantix after starting double dose. Rash on hands since Sunday with some swelling. ING SUPERVISOR Suly Villalpando RN [facility] 2024-07-18 11:25:00 Adult Triage Assessment Last Clinic Visit: 07/11/2024 Family Medicine Dx: Anxiety, sleep difficulties Primary Symptom: spoke with patient reports " rash and swelling, since I've been on the double dose of the Wellbutrin a rash on my hands and finger. And the Wellbutrin is not helping at all with cigarette cravings." Onset / Duration: Sunday night Location / Description: left hand in the palm of my hand and right fingers Pain / Severity: 2/10, only with movements. Feelsl like I have fiber glass in my hand. Associated Symptoms: "swelling to left palm and right fingers. Raised bumps it almost looks like poison gerson without the redness." Fever / Method: Denies Hydration: 32 ounces. Denies any problems with urine or bowels. Treatment so far: "Zanfel I thought it was poison gerson initially but it did not go away and cortizone 10 as well." Denies any relief. Effect on ADL's: denies. Its just itchy it not like liofe or . LMP: N/A Male Pre-existing condition / Immunocompromised: Denies Patient reports believes its from the Wellbutrin increase and would like provider to call him. Routing encounter for further review. Patient advised to call back if symptoms worsen. Patient verbalized understanding and agreed with recommendations. Reason for Disposition [1] Severe localized itching AND [2] after 2 days of steroid cream Protocols used: Rash or Redness - Ccxyjjxhl-ZLQOM-KO [facility] 2024-07-15 08:23:55 Placing orders today. [facility] 2024-07-11 16:17:53 Wanting lab orders to be sent to over to [facility]. [facility] 2023-09-19 16:07:30 Received Progress Notes from [facility] Colon[facility]. Placed in providers box. Aamya Last [facility]
[2024-10-17] MEDS ORDERED: KETOROLAC 30 MG/ML INJ ONE (17:23)
[2024-10-17] MEDS ORDERED: NA CHLORIDE 0.9% 1,000 ML ONE (17:23)
[2024-10-17 17:24] LABS: Absolute Basophils 0.2 K/uL (0-0.5); Absolute Eosinophils 0.2 K/uL (0-0.5); Absolute Lymphocytes (CBC) 2.9 K/uL (0.7-4.9); Absolute Neutrophil 11.1 K/uL (1.8-8.0); Basophils % 1.3 % (0-1.3); Hematocrit 43.4 % (39.6-49.0); Hemoglobin 15.3 g/dL (13.6-17.9); Lymphocytes % 19.1 % (15.3-44.8); MCH 29.5 pg (27.0-35.0); MCHC 35.3 g/dL (32.0-36.0); MCV 83.5 fL (80-100); MPV 6.6 fL (7.6-11.3); Monocytes % 6.4 % (3.3-12.3); Neutrophils % 72.2 % (41.7-73.7); Nucleated Red Blood Cells % 0.1 % (0-0); Platelets 289 thou/uL (152-406); Red Cell Distribution Width 12.7 % (12.1-15.2)
[2024-10-17 17:43] LABS: Albumin 3.6 g/dL (3.4-5.0); Anion Gap 7.6 mEq/L (5.0-15.0); Bilirubin Total 0.6 mg/dL (0.2-1.0); Globulin 3.7 g/dL (2.3-3.5); Potassium 3.6 mEq/L (3.5-5.1); Protein, Total 7.3 g/dL (6.4-8.2)
[2024-10-17 17:53] LABS: Specific Gravity 1.018 (1.005-1.030); Sqamous Epithelial None Seen /HPF (None Seen); Urine Bacteria None Seen /HPF (<20); Urine Bilirubin 1+ (Negative); Urine Blood 2+ (Negative); Urine Clarity Extremely Turbid (Clear); Urine Color Dark-Orange (Yellow); Urine Crystals Unidentified Moderate /HPF (None Seen); Urine Culture Reflex Order REFLEXED; Urine Glucose NEGATIVE (Negative); Urine Ketones NEGATIVE (Negative); Urine Microscopic Reflex YN ORDER UMIC; Urine Nitrite 2+ (Negative); Urine Protein 1+ (Negative); Urine RBC >50 /HPF (None Seen); Urine Urobilinogen 2+ (Normal); Urine WBC >50 /HPF (<5); Urine WBC Clump Many /HPF (None Seen)
--- NOTE | 2024-10-17 18:47 | RAD REPORT ---
EXAMINATION: CT ABDOMEN AND PELVIS WITH AND WITHOUT CONTRAST CLINICAL INDICATION: Abdominal pain TECHNIQUE: CT abdomen and pelvis was performed before and after the administration of IV contrast as per department protocol. 100 cc Isovue 300 administered intravenously. Axial, sagittal and coronal reconstructions were obtained. One or more of the following dose reduction techniques were used: Auto mated exposure control, adjustment of the mA and/or kV according to patient size, and/or iterative reconstruction. Unless otherwise specified, incidental findings do not require dedicated imaging foll ow-up. [id number]. COMPARISON: 2023 FINDINGS: Mild fatty liver. The spleen, pancreas, adrenals, and left kidney appear unremarkable. Mild thinning of cortex right kidney may be secondary to prior inflammation. Normal appendix. No evidence of diverticulitis. IMPRESSION: No acute abnormalities displayed
[2024-10-17] MEDS ORDERED: NA CHLORIDE 0.9% 100 ML ONE (18:49)
[2024-10-17] MEDS ORDERED: CEFTRIAXONE 1000 MG/VIAL ONE (18:49)
--- NOTE | 2024-10-17 19:16 | ER ---
Nurse's Notes [facility] Name: Niko Ray Age: 28 yrs Sex: Male : 1995 Arrival Date: 10/17/2024 Time: 16:46 Bed 4 Private MD: Diagnosis: UTI/ Urinary tract infection, site not specified Presentation: 10/17 16:58 Chief complaint: Patient states: he has been having pain with urination "when i pee it ap3 feels like my d*ck is going to fall off". patient reports this feeling started approx noon today. patient reports "only peeing dribbles, and the only thing that is helping he a hot bath.". Coronavirus screen: At this time, the client does not indicate any symptoms associated with coronavirus-19. Ebola Screen: No symptoms or risks identified at this time. Initial Sepsis Screen: Does the patient meet any 2 criteria? HR > 90 bpm. Does the patient have a suspected source of infection? No. Patient's initial sepsis screen is negative. Risk Assessment: Do you want to hurt yourself or someone else? Patient reports no desire to harm self or others. Onset of symptoms was October 17, 2024. 16:58 Method Of Arrival: Ambulatory ap3 16:58 Acuity: SEBASTIAN 3 ap3 Triage Assessment: 17:00 General: Appears uncomfortable, Behavior is cooperative. Pain: Complains of pain in ap3 groin. Neuro: Level of Consciousness is awake, alert, obeys commands, Oriented to person, place, time, situation. Cardiovascular: Patient's skin is warm and dry. Respiratory: Airway is patent Respiratory effort is even, unlabored, Respiratory pattern is regular, symmetrical. : Reports pain with urination, urgency, urinary frequency. Historical: - Allergies: 16:59 No Known Allergies; ap3 - Home Meds: 16:59 Omeprazole Oral [Active]; ap3 - PMHx: 16:59 acid reflux; ap3 - Immunization history:: Adult Immunizations up to date. - Infectious Disease History:: Denies. - Social history:: Smoking status: Patient reports the use of cigarette tobacco products, smokes one pack cigarettes per day. Screenin:01 Abuse screen: Denies threats or abuse. Nutritional screening: No deficits noted. ap3 Tuberculosis screening: No symptoms or risk factors identified. 17:15 [facility] ED Fall Risk Assessment (Adult) History of falling in the last 3 months, aa5 including since admission No falls in past 3 months (0 pts) Confusion or Disorientation No (0 pts) Intoxicated or Sedated No (0 pts) Impaired Gait No (0 pts) Mobility Assist Device Used No (0 pt) Altered Elimination No (0 pt) Score/Fall Risk Level 0 - 2 = Low Risk Oriented to surroundings, Maintained a safe environment, Educated pt \\T\\ family on fall prevention, incl call for assistance when getting out of bed, Assessed \\T\\ reinforced patient's understanding of fall precautions. Assessment: 17:15 General: Appears comfortable, Behavior is calm, cooperative. Pain: Complains of pain in aa5 with urination only. Neuro: Level of Consciousness is awake, alert, obeys commands, Oriented to person, place, time, situation, Appropriate for age. Cardiovascular: Patient's skin is warm and dry. Respiratory: Airway is patent Respiratory effort is even, unlabored, Respiratory pattern is regular, symmetrical. GI: Abdomen is round non-distended, Patient currently denies abdominal pain. : Reports pain with urination, urgency, urinary frequency, Denies discharge. EENT: No signs and/or symptoms were reported regarding the EENT system. Derm: Skin is pink, warm \\T\\ dry. Musculoskeletal: Range of motion: intact in all extremities. Vital Signs: 16:58 BP 112 / 90; Pulse 106; Resp 18; Temp 97.8; Pulse Ox 100% ; Weight 120.2 kg; Height 6 ap3 ft. 2 in. ; Pain 10/10; 16:58 Body Mass Index 34.02 (120.20 kg, 187.96 cm) ap3 16:58 Pain Scale: Adult ap3 ED Course: 16:48 Patient arrived in ED. mr 16:48 Jaime uY PA is PHCP. cp 16:48 Julia Box MD is Attending Physician. cp 16:59 Triage completed. ap3 17:01 Arm band placed on right wrist. ap3 17:08 Treasure Pinzon, CAMILLA is Primary Nurse. aa5 17:15 Patient has correct armband on for positive identification. Bed in low position. Call aa5 light in reach. Side rails up X 1. Adult w/ patient. 17:15 Initial lab(s) drawn, by me, sent to lab. Urine collected: clean catch specimen, sent aa5 to lab. Inserted saline lock: 20 gauge in right antecubital area, using aseptic technique. Blood collected. Flushed with 10 mL NS. 17:30 No provider procedures requiring assistance completed. aa5 18:32 CT Abd/Pelvis- W/WO Contrast In Process Unspecified. EDMS 19:37 Provided Education on: FOLLOW UPS . bp 19:37 IV discontinued, intact, bleeding controlled, No redness/swelling at site. Pressure bp dressing applied. Administered Medications: 17:25 Drug: TORadol - Ketorolac IVP 15 mg IVP once Route: IVP; Site: right antecubital; aa5 17:39 Follow up: Response: No adverse reaction aa5 17:25 Drug: NS 0.9% IV 1000 ml IV at 1 bolus Per protocol; to be given as a bolus over 60 aa5 minutes Route: IV; Rate: 1 bolus; Site: right antecubital; 19:36 Follow up: Response: No adverse reaction; IV Status: Completed infusion bp 18:57 Drug: Rocephin IV 1 grams IV at calculated rate once; Given slow IV push per pharmacy bp instructions Route: IV; Rate: calculated rate; Site: right antecubital; 19:36 Follow up: Response: No adverse reaction; IV Status: Completed infusion bp 19:30 Drug: LevOfloxacin PO 750 mg PO once Route: PO; bp 19:35 Follow up: Response: No adverse reaction bp Medication: 17:30 VIS not applicable for this client. aa5 Outcome: 19:15 Discharge ordered by . cp 19:36 Patient left the ED. bp 19:36 Discharged to home ambulatory, with family, bp 19:36 Condition: stable 19:36 Discharge instructions given to patient, Instructed on discharge instructions, follow up and referral plans. medication usage, Demonstrated understanding of instructions, follow-up care, medications, Prescriptions given X 3, Signatures: Dispatcher [employer] EDDE Magnolia Blakely, Treasure Schmitt, RN RN aa5 Jaime Yu PA PA cp Peltier, Brian, CAMILLA RN bp Sue Mann RN RN ap3
--- NOTE | 2024-10-17 19:16 | EDPHYS ---
Physician Documentation [facility] Name: Niko Ray Age: 28 yrs Sex: Male : 1995 Arrival Date: 10/17/2024 Time: 16:46 Bed 4 Private MD: ED Physician Julia Box HPI: 10/17 17:15 This 28 yrs old Male presents to ER via Ambulatory with complaints of Urinary Problem. cp 17:15 The patient presents with urinary symptoms, dysuria. Onset: The symptoms/episode cp began/occurred today, at noon. 17:15 Associated signs and symptoms: Pertinent positives: urinary frequency, Pertinent cp negatives: abdominal pain, constipation, diarrhea, fever, vomiting. Severity of symptoms: in the emergency department the symptoms are unchanged, despite home interventions. 17:15 Patient reports recently finishing prescribed Nitrofurantoin antibiotic for uti. cp Historical: - Allergies: 16:59 No Known Allergies; ap3 - Home Meds: 16:59 Omeprazole Oral [Active]; ap3 - PMHx: 16:59 acid reflux; ap3 - Immunization history:: Adult Immunizations up to date. - Infectious Disease History:: Denies. - Social history:: Smoking status: Patient reports the use of cigarette tobacco products, smokes one pack cigarettes per day. ROS: 17:20 Constitutional: Negative for body aches, chills, fever, poor PO intake, cp 17:20 Eyes: Negative for injury, pain, redness, and discharge, cp 17:20 ENT: Negative for drainage from ear(s), ear pain, sore throat, difficulty swallowing, difficulty handling secretions, 17:20 Respiratory: Negative for cough, shortness of breath, wheezing, 17:20 Abdomen/GI: Negative for abdominal pain, vomiting, diarrhea, constipation, 17:20 Back: Negative for pain at rest, pain with movement, 17:20 : Positive for urinary frequency, burning with urination, penile pain, 17:20 Skin: Negative for rash, 17:20 Neuro: Negative for altered mental status, headache, weakness, 17:20 All other systems are negative, Exam: 17:25 Constitutional: The patient appears in no acute distress, alert, awake, non-toxic, well cp developed, well nourished, uncomfortable, overweight 17:25 Head/Face: Normocephalic, atraumatic. cp 17:25 Eyes: Periorbital structures: appear normal, Conjunctiva: normal, no exudate, no injection, Sclera: no appreciated abnormality, Lids and lashes: appear normal, bilaterally, 17:25 ENT: External ear(s): are unremarkable, Nose: is normal, Mouth: Lips: moist, Oral mucosa: moist, Posterior pharynx: Airway: no evidence of obstruction, patent, 17:25 Chest/axilla: Inspection: normal, 17:25 Cardiovascular: Rate: tachycardic, Rhythm: regular, 17:25 Respiratory: the patient does not display signs of respiratory distress, Respirations: normal, no use of accessory muscles, no retractions, labored breathing, is not present, Breath sounds: are clear throughout, no decreased breath sounds, no stridor, no wheezing, 17:25 Abdomen/GI: Inspection: abdomen appears normal, Palpation: abdomen is soft and non-tender, in all quadrants, 17:25 Back: pain, is absent, ROM is normal, 17:25 Skin: cellulitis, is not appreciated, no rash present. Vital Signs: 16:58 BP 112 / 90; Pulse 106; Resp 18; Temp 97.8; Pulse Ox 100% ; Weight 120.2 kg; Height 6 ap3 ft. 2 in. ; Pain 10/10; 16:58 Body Mass Index 34.02 (120.20 kg, 187.96 cm) ap3 16:58 Pain Scale: Adult ap3 MDM: 18:00 Differential diagnosis: UTI, prostatitis, urethritis, sepsis, kidney stone. 19:15 Medical Screening Exam initiated 19:15 Data reviewed: vital signs, nurses notes, lab test result(s), radiologic studies, CT cp scan. 19:15 I considered the following discharge prescriptions or medication management in the emergency department Medications were administered in the Emergency Department. See MAR. Counseling: I had a detailed discussion with the patient and/or guardian regarding the historical points, exam findings, and any diagnostic results supporting the discharge/admit diagnosis, lab results, radiology results, the need for outpatient follow up, for definitive care, a urologist, to return to the emergency department if symptoms worsen or persist or if there are any questions or concerns that arise at home. Response to treatment: the patient's symptoms have mildly improved after treatment, and as a result, I will discharge patient. 10/17 17:11 Order name: CBC with Diff; Complete Time: 18:11 cp 10/17 18:11 Interpretation: Normal except: WBC 15.30; MPV 6.6; NEUT A 11.1. cp 10/17 17:11 Order name: CMP; Complete Time: 18:11 cp 10/17 17:11 Order name: Lipase; Complete Time: 18:11 cp 10/17 17:11 Order name: UA Rfx Marino Cult if indicated; Complete Time: 18:11 cp 10/17 18:11 Interpretation: Normal except: UCLA Extremely Turbid; UBILI 1+; UBLD 2+; UPROT 1+; cp UUROB 2+; UNIT 2+; UESTR 500; UWBC >50; UNCX Moderate; URBC >50; UWBC Clump Many. 10/17 17:11 Order name: GC (Caleb/Chl) Probe CX/URE (Do not order if pt is under 13, order Culture cp instead) 10/17 18:05 Order name: Urine Culture EDMS 10/17 18:13 Order name: CT Abd/Pelvis- W/WO Contrast; Complete Time: 18:53 cp 10/17 18:54 Interpretation: Reviewed. cp 10/17 17:11 Order name: IV Saline Lock; Complete Time: 17:11 cp 10/17 17:11 Order name: Labs collected and sent; Complete Time: 17:11 cp Administered Medications: 17:25 Drug: TORadol - Ketorolac IVP 15 mg IVP once Route: IVP; Site: right antecubital; aa5 17:39 Follow up: Response: No adverse reaction aa5 17:25 Drug: NS 0.9% IV 1000 ml IV at 1 bolus Per protocol; to be given as a bolus over 60 aa5 minutes Route: IV; Rate: 1 bolus; Site: right antecubital; 19:36 Follow up: Response: No adverse reaction; IV Status: Completed infusion bp 18:57 Drug: Rocephin IV 1 grams IV at calculated rate once; Given slow IV push per pharmacy bp instructions Route: IV; Rate: calculated rate; Site: right antecubital; 19:36 Follow up: Response: No adverse reaction; IV Status: Completed infusion bp 19:30 Drug: LevOfloxacin PO 750 mg PO once Route: PO; bp 19:35 Follow up: Response: No adverse reaction bp Disposition Summary: 10/17/24 19:15 Discharge Ordered Notes: Location: Home cp Problem: new cp Symptoms: have improved cp Condition: Stable cp Diagnosis - UTI/ Urinary tract infection, site not specified cp Followup: cp - With: Private Physician - When: 2 - 3 days - Reason: Recheck today's complaints Discharge Instructions: - Discharge Summary Sheet cp - Urinary Tract Infection, Adult cp Forms: - Medication Reconciliation Form cp - Antibiotic Education cp - Prescription Opioid Use cp - Patient Portal Instructions cp - Leadership Thank You Letter cp Prescriptions: - Ibuprofen 800 mg Oral Tablet - take 1 tablet ORAL route every 8 hours As needed take with food; 30 tablet; cp Refills: 0, Product Selection Permitted - Zofran 4 mg Oral Tablet - take 1 tablet ORAL route every 12 hours As needed; 20 tablet; Refills: 0, cp Product Selection Permitted - cefpodoxime 200 mg Oral tablet - take 1 tablet ORAL route every 12 hours with food; 20 tablet; Refills: 0, cp Product Selection Permitted Signatures: Dispatcher [employer] EDMS Treasure Pinzon, RN RN aa5 Jaime Yu PA PA cp Mo Gallardo, RN RN bp Sue Mann RN RN ap3 Corrections: (The following items were deleted from the chart) 17:11 17:11 CBC+H.LAB.BRZ ordered. EDMS EDMS 17:11 17:11 COMPREHENSIVE METABOLIC PANEL+C.LAB.BRZ ordered. EDMS EDMS 17:11 17:11 LIPASE+C.LAB.BRZ ordered. EDMS EDMS 17:11 17:11 UA Rfx Marino Cult if indicated+U.LAB.BRZ ordered. EDMS EDMS 17:11 17:11 GC (Caleb/Chl) Probe CX/URE+R.LAB.BRZ (Do not order if pt is under 13, order EDMS Culture instead) ordered. EDMS 18:13 18:13 Abdomen Pelvis W/Wo Con+CT.RAD.BRZ ordered. EDMS EDMS
[2024-10-17] MEDS ORDERED: levoFLOXacin 750 MG TAB ONE (19:29)
[2024-10-17 19:53] VITALS: BP 112/90; TEMP 97.8; O2SAT 100
== END 2024-10-17 19:36 | disposition home or self-care (01) ==
LOC: ER 16:46
DX: N39.0 Urinary tract infection, site not specified (principal); F17.210 Nicotine dependence, cigarettes, uncomplicated
CPT/HCPCS: 96365; 96361; 87088; 85025; 81001; 87086; 36415; 87077; 87186; 83690; 80053; 74178; 96375; 99284; Q9967; J7030; J0696